=== PATIENT | male | born 1960 | race Caucasian/White ===

== ENCOUNTER 2016-10-01 14:15 | Outpatient (CLI) | payer OTHER ==
[~2016-10-01] VITALS: Ht 193 cm; Wt 108.9 kg
== END 2016-10-01 14:46 ==
LOC: PREOP 14:15
PROVIDERS: ATTEND Internal Medicine
DX: Z01.818 Encounter for other preprocedural examination (principal); Z12.11 Encounter for screening for malignant neoplasm of colon

== ENCOUNTER 2016-10-03 09:01 | Day surgery (SDC) | payer OTHER ==
[~2016-10-03] VITALS: Ht 193 cm; Wt 108.9 kg
--- NOTE | 2016-10-03 09:09 | HISTORY AND PHYSICAL ---
DICTATING PHYSICIAN: Dr. Alvarez DATE OF ADMISSION: 10/03/2016 REFERRING PHYSICIAN: Dr. Pickard Mr. Christopher is a 56-year-old white male referred for his first screening colonoscopy by Dr. Pickard. He is seemed to be of average risk, he is not aware of any family history of colon cancer or colon polyps. He denies any bowel habit change in his medical history. FAMILY HISTORY: His father is living at age of 92 and has a history of coronary artery disease. Mother is living at the age of 88. He reports she has no significant past health problems. 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 He has no past smoking history. Reports some moderate alcohol. But no past heavy drinking history, reporting about 2 cocktails per week history. PHYSICAL EXAMINATION: Reveals white male, appears to be in no acute distress. HEENT EXAMINATION: Unremarkable. He has a Mallampati class I oropharyngeal configuration. Pharynx reveals no evidence for erythema. NECK: Reveals no JVD, adenopathy or bruits. Sclerae are nonicteric. CHEST: Clear. CV: Reveals regular rate and rhythm without murmur, S3 or S4. ABDOMEN: Soft, supple without masses, organomegaly or tenderness. RECTAL EXAMINATION: Deferred to the time of colonoscopy. ABDOMEN: Soft, supple without masses, organomegaly or tenderness. EXTREMITIES: Reveal no cyanosis, clubbing, or edema. ASSESSMENT: The patient is set-up for a screening colonoscopy on the 10/03/2016. Prep instructions with split dose Hyman-prep kit were given and at questions were answered and rationale for screening colonoscopy were discussed. I thank you for the referral of this pleasant gentleman. Sincerely, Calixto Alvarez Job ID: [id number] Dictated Date: 08/27/2016 20:12:00 Risk Tech Date: 08/28/2016 11:12:59/eryn
[2016-10-03] MEDS ORDERED: 1/2 NS IV SOLUTION 1,000 ML IV STA (09:12)
[2016-10-03] MEDS ORDERED: NALOXONE 0.4 MG/ML 1 ML (NARCAN) VIAL IVP PRN (09:15)
[2016-10-03] MEDS ORDERED: MIDAZOLAM 2 MG/2 ML (VERSED) VIAL IVP PRN (09:15)
[2016-10-03] MEDS ORDERED: LIDOCAINE JELLY 2% (XYLOCAINE) 5 ML TUBE MM PRN (09:15)
[2016-10-03] MEDS ORDERED: FLUMAZENIL (ROMAZICON) 0.1 MG/ML 5 ML VIAL INJ PRN (09:15)
[2016-10-03 09:55] VITALS: BP 136/95
[2016-10-03] MEDS ORDERED: MIDAZOLAM 2 MG/2 ML (VERSED) VIAL ONE ×3 (10:31→10:32)
[2016-10-03] MEDS ORDERED: LIDOCAINE JELLY 2% (XYLOCAINE) 5 ML TUBE ONE (10:32)
[2016-10-03] MEDS ORDERED: fentaNYL INJECTION 100 MCG/2 ML AMP ONE ×2 (10:32)
[2016-10-03] MEDS: fentaNYL INJECTION 100 MCG/2 ML AMP IVP PRN ×2 (10:45→11:14)
--- NOTE | 2016-10-03 11:49 | Pre-Op Note & Conscious Sedat ---
Pre-Operative Progress Note H&P Reviewed The H&P was reviewed, patient examined and no changes noted. Date H&P Reviewed: Oct 03, 2016 Conscious Sedation Pre-Proced ASA Class: 1 Airway Mallampati Classification: ([place] appropriate class) I. II. III, IV Lungs Heart ASA score ASA 1: a normal healthy patient ASA 2: a patient with a mild systemic disease (mid diabetes, controlled hypertension, obesity ASA 3: a patient with a severe systemic disease that limits activity (angina , COPD, prior Myocardial infarction) ASA 4: a patient with an incapacitating disease that is a constant threat to life (CHF, renal failure) ASA 5: a moribund patient not expected to survive 24 hrs. (ruptured aneurysm) ASA 6: a declared brain patient whose organs are being harvested. For emergent operations, add the letter E after the classification Grade 2 Sedation Plan: Analgesia, Amnesia, Plan communicated to team members, Discussed options with patient/fam, Discussed risks with patient/fam Note The patient is an appropriate candidate to undergo the planned procedure, sedation, and anesthesia. The patient immediately re-assessed prior to indication. MARY TAYLOR MD Oct 03, 2016 11:49
[2016-10-03 11:50] VITALS: BP 139/88
--- NOTE | 2016-10-03 11:52 | Pre-Op Note & Conscious Sedat ---
Pre-Operative Progress Note H&P Reviewed The H&P was reviewed, patient examined and no changes noted. Date H&P Reviewed: Oct 03, 2016 Time H&P Reviewed: 11:10 Conscious Sedation Pre-Proced ASA Class: 1 Airway Mallampati Classification: ([place] appropriate class) I. II. III, IV Lungs Heart ASA score ASA 1: a normal healthy patient ASA 2: a patient with a mild systemic disease (mid diabetes, controlled hypertension, obesity ASA 3: a patient with a severe systemic disease that limits activity (angina , COPD, prior Myocardial infarction) ASA 4: a patient with an incapacitating disease that is a constant threat to life (CHF, renal failure) ASA 5: a moribund patient not expected to survive 24 hrs. (ruptured aneurysm) ASA 6: a declared brain patient whose organs are being harvested. For emergent operations, add the letter E after the classification Grade 2 Sedation Plan: Analgesia, Amnesia, Plan communicated to team members, Discussed options with patient/fam, Discussed risks with patient/fam Note The patient is an appropriate candidate to undergo the planned procedure, sedation, and anesthesia. The patient immediately re-assessed prior to indication. MARY TAYLOR MD Oct 03, 2016 11:52
[2016-10-03 12:15] VITALS: BP 119/82
[2016-10-03 12:25] VITALS: BP 119/82
--- NOTE | 2016-10-05 13:45 | PROCEDURE REPORT ---
PROCEDURE PHYSICIAN: MARY TAYLOR DATE OF PROCEDURE: 10/03/2016 INDICATION FOR THE PROCEDURE: Screening colonoscopy. The patient was placed in the left lateral decubitus position. Prior to undergoing colonoscopy, digital rectal evaluation was performed. Anal sphincter tone was normal and the perianal reflex was intact. The prostate was mildly enlarged, anodular and nontender to digital inspection. No other abnormalities were noted to digital inspection of the anal canal or distal rectal vault. The colonoscope was then inserted into the rectum and under visualization, advanced to the cecum. The cecum was identified by identification the ileocecal valve and cecal strap. Photographic documentation was obtained. A careful inspection was made as the colonoscope was withdrawn. FINDINGS: There no evidence for internal or external hemorrhoids and the rectum was unremarkable. A moderate number of small to medium sized sigmoid diverticulum were present, without evidence for diverticulitis. No other sigmoid abnormalities were appreciated. The descending colon and transverse colon were unremarkable. Present at the hepatic flexure was a diminutive, 5 x 6 mm sessile adenomatous appearing polyp. It was photographed, biopsied and ablated, and submitted for histopathology. The ascending colon and cecum were unremarkable. ASSESSMENT: 1. One diminutive sessile adenomatous appearing polyp was removed from the hepatic flexure with no subsequent blood loss via hot forceps. 2. Mild to moderate diverticular disease confined to the sigmoid colon was present. 3. Mild, BPH was present on digital inspection of the prostate. 4. As long as there are no surprises on histopathology, we will advocate consideration for repeat surveillance colonoscopy in 5 years. I thank you for the referral of this pleasant gentleman. Sincerely, Mary Taylor Job ID: [id number] Dictated Date: 10/05/2016 12:27:10 Director [employer] Date: 10/05/2016 13:40:45 / eryn
== END 2016-10-03 12:20 | disposition home or self-care (01) ==
LOC: ENDO 09:01
PROVIDERS: ATTEND Internal Medicine
DX: Z12.11 Encounter for screening for malignant neoplasm of colon (principal); K63.5 Polyp of colon; K57.30 Diverticulosis of large intestine without perforation or abscess without bleeding; N40.0 Benign prostatic hyperplasia without lower urinary tract symptoms
CPT/HCPCS: 88305